=== PATIENT | female | born 1990 | race Caucasian/White ===

== ENCOUNTER 2024-12-23 13:02 | Emergency (ER) | payer MEDICAID, SELFPAY ==
--- OUTSIDE RECORDS SUMMARY | 2024-12-23 13:07 | XMS_ITS | Clinical Summary ---
Author Organization [facility] Address [address] [place] [id number] Care Team Providers Care Button Machine Operator Name Role Phone Cortney Guillaume MD Primary Care Provider [phone] Allergies No known active allergies Medications acetaminophen (TYLENOL) 325 mg tabletIndicati ons:S/P section Take 2 Tablets (650 mg) by mouth every 4 hours if needed (mild pain). Max acetaminophen dose: 4000mg in 24 hrs. 100 Tablet 03/13/2024 4:53 PM PATTERN FILER Active Additional Information Patient not taking.Reported on 12/17/2024 ibuprofen (Motrin IB) 200 mg tabletIndicati ons:S/P section Take 3 Tablets (600 mg) by mouth every 6 hours if needed for Pain (for uterine cramping). Take with food. 100 Tablet 03/13/2024 4:53 PM PATTERN FILER Active Additional Information Patient not taking.Reported on 12/17/2024 Hospital, Clinic, or Other Facility Administered Medication Ordered Dose Route Frequency Start Date End Date Status medroxyPROGESTERone acetate (contraceptive) (DEPO-PROVERA) injection 150 mgIndications:Menorr hagia with irregular cycle 150 mg IM Q 3 MONTHS (12 WEEKS) 12/18/2024 11/19/2025 Active Active Problems Problem Noted Date Diagnosed Date At risk for ineffective 03/13/2024 Acute on chronic anemia 03/13/2024 premature rupture of membranes with onset of labor more than 24 hours following rupture in third trimester 03/10/2024 Grand multipara 03/10/2024 Anemia during in third trimester 03/10 S/P section 03/10/2024 Non-reassuring status, delivered, current hospitalization 03/10/2024 ROM (rupture of membranes), premature 03/09/2024 32 weeks gestation of 03/09/2024 care of multigravida, antepartum 2023 Vaginal delivery 08/12/2020 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) at risk for high grade squamous intraepithelial lesion (HGSIL) on cytologic smear of cervix 08/30/2011 Overview (06/28/2023): 08/30/2011 LSIL; cannot exclude a higher-grade lesion (age 21) 12/12/2011 Gary - No Biopsy taken () (age 21) 05/28/2015 NIL 11/02/2016 NIL 01/26/2020 NIL 06/18/2023 NIL/HPV Negative Plan: HPV based testing due 05/2028 GERD (gastroesophageal reflux disease) Resolved Problems Problem Noted Date Diagnosed Date Resolved Date Supervision of other normal 01/22/2020 08/12/2020 Vaginal delivery 09/25/2018 08/12/2020 Suspected anomaly not found 06/28/2018 08/12/2020 Supervision of normal intrau terine in multigravida 03/27/2018 08/12/2020 Contraceptive surveillance 09/02/2015 0 08/12/2020 Ganglion cyst of finger of right hand 05/09/2015 08/12/2020 Overweight 04/14/2015 08/12/2020 Active labor at term 08/20/2014 016 Anemia during 04/19/201203/27 care, subsequent 12/01/2011 04/14/2015 Overview (06/17/2012): GBS neg LGSIL on first OB pap: colpo without significant lesions: plan to recheck pap at 6 week PP visit, repeat colpo if needed. LSIL (low grade squamous int raepithelial lesion) on Pap smear 08/30/2011 11/14/2016 Overview (04/11/2013): Cannot exclude high grade lesion; overdue for repeat Pap- 04/11/13 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) on cervical Pap smear 08/30/2011 02/13/2020 Overview (11/16/2016): 08/30/2011; Cannot exclude high grade lesion Pap Plan: Routine Screening Encounters Date Type Department Care Team Description 12/17/2024 8:45 AM CDT Office Visit [facility] [address] [place] [address] Cortney Guillaume MD Follow Up (Pain in area. Started period with clots) 12/17/2024 Telephone [facility] [address] [place] [address] Cortney Guillaume MD Letter For Work 12/17/2024 Travel from Last 3 Months Immunizations Immunization Administration Dates Next Due COVID-19 VACCINE SPIKEVAX (M ODERNA 50MCG/0.5ML) 12YO+ PFS 02/26/2023 COVID-19 vaccine (Pfizer-Bio NTech 30mcg/0.3mL) PF, MDV 10/13/2020,09/22/2020 Hepatitis A (Adult) 10/24/2023 Hepatitis B, Unspecified 05/10/2007,07/31/2006,0 06/26/2006 INFLUENZA, IIV3 PF (AGE >= 6 MO) 12/28/2023 Inactivated Polio Vaccine 05/10/2007,07/31/2006, 06/26/2006 Influenza Virus, Unspecified 02/02/2012 Influenza, IIV3 (Age 6-35 mos) 12/02/2010 Influenza, IIV3 (Age >=3 years) 02/02/20 12,12/02/2010,01/26/2010,2006,02/09/2006,01/15/2006 Influenza, IIV4 02/26/2023,01/26/2020 MMR 07/31/2006,06/26/2006 Td, Preservative Free (age > = 7 Years) 05/10/2007,07/31/2006,06/26/2006 Tdap 01/28/2024,,08/28/2018,2014,05/01/2012,01/26/2010 Tdap, Unspecified 08/07/2014 Typhoid (injectable) 10/24/2023 Varicella Vaccine 07/31/2006,06/26/2006 Family History Medical History Relation Name Comments Good Health Father Good Health Mother Relation Name Status Comments Brother Alive x4 Father Alive Maternal Grandfather Alive Maternal Grandmother Mother Alive Paternal Grandfather Paternal Grandmother Sister Alive Son Alive Social History Tobacco Use Types Packs/Day Years Used Date Smoking Tobacco: Never Smokeless Tobacco: Never Tobacco Cessation:Counseling Given: Yes Alcohol Use Standard Drinks/Week Comments No 0 (1 standard drink = 0.6 oz pur e alcohol) Humiliation, Afraid, Rape, and Kick questionnair e Answer Date Recorded Within the last year, have y ou been afraid of your partner or ex-partner? No 01/22/2020 Within the last year, have y ou been humiliated or emotionally abused in other ways by your partner or ex-partner? No Within the last year, have y ou been kicked, hit, slapped, or otherwise physically hurt by your partner or ex-partner? No 01/22/2020 Within the last year, have y ou been raped or forced to have any kind of sexual activity by your partner or ex-partner? No 01/22/2020 PHQ-2 Answer Date Recorded PHQ-2 TOTAL SCORE 0 02/27/2024 Social Connections Answer Date Recorded Do you often feel lonely or isolated from those around you? 0 03/09/2024 Financial Resource Strain Answer Date R ecorded Difficulty of Paying Living Expenses 3 12/28/2023 Difficulty of Paying Living Expenses Not on file 12/28/2023 Food Insecurity Answer Date Recorded Do you worry your food will run out before you are able to buy more? 1 03/09/2024 Transportation Needs Answer Date Record ed Does lack of transportation keep you from medica l appointments? 1 03/09/2024 Does lack of transportation keep you from work, meetings or getting things that you need? 1 03/09/2024 Housing Stability Answer Date Recorded What is your housing situation today? 1 03/09/2024 Interpersonal Safety Answer Date Record ed Are you being hit, kicked, p ushed or yelled at (see row info)? No 03/09/2024 Interpersonal Safety Abuse 12 - 18 Not on file 03/09/2024 Interpersonal Safety Ambulatory Vulnerability No t on file 03/09/2024 Utilities Answer Date Recorded Do you have trouble paying f or utilities (for example, heat, electricity, water, phone)? 1 03/09/2024 Comments No Sex and Gender Information Value Date Recorded Sex Assigned at Not on file Legal Sex Female 7:21 AM PATTERN FILER Gender Identity Not on file Sexual Orientation Not on file Occupation Industry Job Start Date Job End Date home Not on file Not on file Not on file [employer] Not on file Not on file Not on file Obstetrics History Para Term AB IAB SAB Ectopic Multiple Livin g Live Births 6 6 5 1 0 0 0 0 0 6 6 Date Outcome GA Total Labor Labor/2nd/3rd Weight Sex Type Anes PTL Angella A1 A5 Name Clin 2005 Term 40w 0d 0h 30m/ 2.27 kg (5 lb) M Vag None N Livin g Arturo Delivery Location:[facility] Comments:precipitous d elivery 3 Term 39w 0d 2.81 kg (6 lb 3 oz) F Vag None N Livin vito german Delivery Location:[facility] 2014 Term 37w 6d 0h 30m/ M Vag None N Livin g Arturo Delivery Location:[facility] Comments:precipitous d elivery 2018 Term 38w 2d 0h 10m/0h 03m 2.75 kg (6 lb 1 oz) M Vag None N Livin g [address] tt Complications:None,Precipito us delivery (HC) Delivery Location:[facility]) 2020 Term 39w 0d 8h 00m 7h 58m/0h 02m/ 3.55 kg (7 lb 13.1 oz) M Vag-S pont None Livin g 9 [address], Cortney Romero MD Complications:Precipitous la bor (< 3 hours) Delivery Location:[facility] ( [facility]) 2023 33w 0d 0h 02m 0h 02m M C-Sec tion Spinal Y Livin g 5 8 Bernardo spaulding, Carmenza antoine MD Complications:Category II: I ndeterminate Delivery Location:Hospital ( [facility] [place] [address]) Last Filed Vital Signs Vital Sign Reading Time Taken Comments Blood Pressure 98/60 12/17/2024 8:46 AM CDT Pulse 62 12/17/2024 8:46 AM CDT Temperature 36.7 C (98 F) 03/13/2024 3:08 PM PATTERN FILER Respiratory Rate 16 12/17/2024 8:46 AM CDT Oxygen Saturation 98% 03/13/2024 3:08 PM PATTERN FILER Inhaled Oxygen Concentration - - Weight 66.8 kg (147 lb 4.8 oz) 12/17/2024 8:46 A M CDT Height 143.5 cm (4' 8.5) 12/17/2024 8:46 AM CDT Body Mass Index 32.44 12/17/2024 8:46 AM CDT Plan of Treatment Upcoming Encounters Date Type Department Care Team (Late st Contact Info) Description 12/25/2024 9:45 AM CDT Orders Only [address] [place] [address] Lab, [facility] 01/29/2025 8:30 AM PATTERN FILER Office Visit [address] [place] [address] Asha Kemp, [address] [place] [address] Health Maintenance Due Date Last Done Comments Pneumococcal series for age 6-49 (1 of 2 - PCV) 2009 HPV series for age 9-45 (1 - 3-dose SCDM series) 2017 COVID-19 vaccine series (2024- season) 2024 02/26/2023, 10/13/2020, 09/22/2020 Influenza Vaccine (#1) 2024 , 02/26/2023, 01/26/2020, Additional history exists Depression screening for age 12+ 02/26/2025 02/27/20 24 BMI (ht and wt on same day) for age 18+ 12/17/2025 12/17/2024, 07/09/2024, 04/25/2024, Additional history exists Pap test for age 21-65 06/17/2028 , 06/18/2023, 01/26/2020, Additional history exists Tetanus booster 01/27/2034 01/28/2024, 06/24, 08/28/2018, Additional history exists RSV vaccine for adults or (1 - 1-dose 75+ series) 2065 Hepatitis B series for 19+ Completed 05/10, 07/31/2006, 06/26/2006 HIV for age 15-65 Completed 12/28/2023, , 04/05/2018, Additional history exists Hepatitis C screening for ag e 18-79 Completed 12/28/2023, 01/22/2020 Procedures Procedure Name Priority Date/Time Associated Diagnosis Comments HCG BETA QUANT, Routine 12/17/2024 9:48 AM CDT Menorrhagia with irregular cycle HEMOGLOBIN Routine 12/17/2024 9:48 AM CDT Menorrhagia with irregular cycle HIV 1/2 ANTIGEN/ANTIBODY FOURTH GENERATION W/RFL ([facility]) Routine 12/28/2023 11:55 AM CDT care, subsequent in second trimester (HC) ANTI HCV Routine 12/28/2023 11:55 AM CDT care, subsequent in second trimester (HC) HPV HIGH RISK Routine 06/18/2023 10:30 AM CDT Pap smear for cervical cancer screening from Last 3 Months or Most Recently Relevant to Health Maintenance Results * HEMOGLOBIN (12/17/2024 9:48 AM CDT) HEMOGLOBIN 11.7 11.7 - 15.5 g/dL 12/18/2024 3:26 AM CDT [facility] MCV 88.5 80.0 - 100.0 fL 12/18/2024 3:26 AM CDT [facility] Blood BLOOD SPECIMEN / Unknown [facility] / Unknown 12/17/2024 9:48 AM CDT 12/17/2024 9:49 AM CDT Cortney Guillaume MD HEMATOLOGY Final Result [facility] [address] [address], * HCG BETA QUANT, (12/17/2024 9:48 AM CDT) Pathologist [facility] HCG BETA QUANT,PREGNANC Y 894 mIU/mL 12/17/2024 11:07 AM CDT [facility] Blood BLOOD SPECIMEN / Unknown [facility] / Unknown 12/17/2024 9:48 AM CDT 12/17/2024 9:49 AM CDT Narrative [facility] - 12/17/2024 11:07 AM CDT Expected Value for Healthy Non- premenopausal women <5.3mIU/mL FOR GESTATIONAL ASSESSMENT-See Range Table Below Weeks of gestation hCG mIU/mL 3 weeks gestation (5.8 - 71.2) 4 weeks gestation (9.5 - 750) 5 weeks gestation (217 - 7138) 6 weeks gestation (158 - 31,795) 7 weeks gestation (3,697 - 163,563) 8 weeks gestation (32,065 - 149,571) 9 weeks gestation (63,803 - 151,410) 10 weeks gestation (46,509 - 186,977) 12 weeks gestation (27,832 - 210,612) 14 weeks gestation (13,950 - 62,530) 15 weeks gestation (12,039 - 70,971) 16 weeks gestation (9,040 - 56,451) 17 weeks gestation (8,175 - 55,868) 18 weeks gestation (8,099 - 58,176) Biotin supplements may cause clinically significant interference for this test assay. If interference is suspected, it is strongly recommended that biotin is discontinued for at least one week prior to retesting. Cortney Guillaume MD CHEMISTRY Final Result [facility] [address] [place] [address] * HIV 1/2 ANTIGEN/ANTIBODY FOURTH GENERATION W/RFL ([facility]) (12/28/2023 11:55 AM CDT) HIV AG/AB, 4TH GEN NON-REACT CELENA NON-REACT CELENA [facility] [place] Comment: HIV-1 antigen and HIV-1/HIV-2 antibodies were not detected. There is no laboratory evidence of HIV infection. PLEASE NOTE: This information has been disclosed to you from records whose confidentiality may be protected by state law. If your state requires such protection, then the state law prohibits you from making any further disclosure of the information without the specific written consent of the person to whom it pertains, or as otherwise permitted by law. A general authorization for the release of medical or other information is NOT sufficient for this purpose. For additional information please refer to http://education.Onlineprinters/faq/GZQ998 (This link is being provided for informational/ educational purposes only.) The performance of this assay has not been clinically validated in patients less than 2 years old. Blood BLOOD SPECIMEN / Unknown 12/28/2023 11:55 AM CDT 12/28/2023 11:55 AM CDT Cortney Guillaume MD SEND OUTS Final Result [facility] [address] [place] [address], [facility] [address] [place] [address] * ANTI HCV (12/28/2023 11:55 AM CDT) HEPATITIS C ANTIBODY NON-REACTI VE NON-REACT CELENA [facility] Comment: HCV antibody was non-reactive. There is no laboratory evidence of HCV infection. In most cases, no further action is required. However, if recent HCV exposure is suspected, a test for HCV RNA (test code 16194) is suggested. For additional information please refer to http://education.Onlineprinters/faq/ALG43f2 (This link is being provided for informational/ educational purposes only.) Blood BLOOD SPECIMEN / Unknown 12/28/2023 11:55 AM CDT 12/28/2023 11:55 AM CDT Cortney Guillaume MD SEND OUTS Final Result Performing Organization Address [facility]/ZIP Co de Phone Number Urve[facility] [address] [place] [address], [facility] [address] [place] [address] * HPV HIGH RISK (06/18/2023 10:30 AM CDT) TYPE 16 Negative Negative 06/20/2023 4:33 PM CDT [facility] TYPE 18 Negative Negative 06/20/2023 4:33 PM CDT [facility] OTHER HIGH RISK TYPES Negative Negative 06/20/2023 4:33 PM CDT [facility] Other (Cervical) Non-Blood / Unknown 06/18/2023 10:30 AM CDT 06/19/2023 9:41 AM CDT Narrative [facility] - 06/20/2023 4:33 PM CDT HPV types 16, 18, 31, 33, 35, 39, 45, 51, 52, 56, 58, 59, 66 and 68 DNA were undetectable or below the pre-set threshold. Methodology: Nino Dayna 4800 HPV Test us Cortney Guillaume MD MICROBIOLOGY Final Result [facility] [address] [place] [address], [place] from Last 3 Months or Most Recently Relevant to Health Maintenance Insurance [facility] Advance Directives * Full Code (Latest Code Status on File) Date Activated Date Inactivated Comments 03/11/2024 5:03 AM 03/13/2024 7:56 PM Physician Determined Question Answer Comments Code Status Discussion: Other * Full Code Date Activated Date Inactivated Comments 03/10/2024 12:19 AM 03/10/2024 4:02 PM Question Answer Comments Code Status Discussion: Reviewed Preferences * Full Code Date Activated Date Inactivated Comments 08/12/2020 10:44 AM 08/13/2020 6:07 PM Question Answer Comments Code Status Discussion: Not Discussed * Full Code Date Activated Date Inactivated Comments 09/25/2018 7:21 AM 09/26/2018 4:19 PM * Full Code Date Activated Date Inactivated Comments 05/10/2015 12:25 PM 05/10/2015 4:00 PM Care Teams Button Machine Operator Relationship Specialty Start Date End Date Cortney Guillaume MD [address] [facility] [place] [address] PCP - General Family Practice 02/02/12
[2024-12-23 13:14] VITALS: BP 102/65; PULSE 82; RESP 18; TEMP 37.1; O2SAT 98; BMI 30.5
--- NOTE | 2024-12-23 13:30 | CRLHL7_ITS ---
For Patients: As a result of the Century Cures Act, medical imaging exams and procedure reports are released immediately into your electronic medical record. You may view this report before your referring provider. If you have questions, please contact your health care provider. INDICATION: Continued heavy bleeding with clots after presumed miscarriage on 12/18/2024. TECHNIQUE: Ultrasound OB pelvis transabdominal and transvaginal. Real-time hodge-scale imaging of the pelvis was performed. COMPARISON: None. FINDINGS: Irregular fluid collection within the fundal portion of the endometrium, with adjacent prominent foci of hypervascularity. The endometrial stripe is distended to 2 cm. The uterus is otherwise unremarkable. Unremarkable ovaries. The right ovary measures 3.2 x 1.6 x 2.2 cm and the left ovary measures 2.5 x 1.7 x 2.1 cm. IMPRESSION: Irregular fluid collection within fundal portion of the endometrium with prominent adjacent foci of hypervascularity, suspicious for retained products of conception. Dictated by Marv Long MD @ 12/23/2024 2:40:46 PM (Electronically Signed)
--- NOTE | 2024-12-23 14:46 | ED.FEMALEGU ---
HPI - Female Genitourinary General Chief complaint: Vaginal Bleeding Stated complaint: Abdominal pain Time Seen by Provider: 12/23/24 14:00 Related Data Previous Rx's ?Medication ?Instructions ?Recorded hydrocodone 5 mg-acetaminophen 325 1 tab PO Q4-6H PRN pain #10 tabs 12/23/24 mg tablet Allergies Allergy/AdvReac Type Severity Reaction Status Date / Time No Known Drug Allergies Allergy Verified 12/23/24 13:13 Exam Const: Vital Signs, click to edit/add: Vital Signs - 24 hr 12/23/24 13:14 Temperature 98.8 F Pulse Rate [Pulse Oximeter] 82 Respiratory Rate 18 Blood Pressure [Ri ght Upper Arm] 102/65 Pulse Oximetry 98 Oxygen Delivery Me thod Room Air Course Vital Signs Vital signs: Initial Vital Signs Temperature 98.8 F 12/23/24 13:14 Temperature Source Temporal Artery Scan 12/23/24 13:14 Pulse Rate 82 12/23/24 13:14 Respiratory Rate 18 12/23/24 13:14 Blood Pressure 102/65 12/23/24 13:14 Blood Pressure Mean 77 12/23/24 13:14 Pulse Oximetry 98 12/23/24 13:14 Oxygen Delivery Method Room Air 12/23/24 13:14 Vital Signs Temperature 98.8 F 12/23/24 13:14 Pulse Rate 82 12/23/24 13:14 Respiratory Rate 18 12/23/24 13:14 Blood Pressure 102/65 12/23/24 13:14 Pulse Oximetry 98 12/23/24 13:14 Oxygen Delivery Method Room Air 12/23/24 13:14 Temperature 98.8 F 12/23/24 13:14 Pulse Rate 82 12/23/24 13:14 Respiratory Rate 18 12/23/24 13:14 Blood Pressure 102/65 12/23/24 13:14 Pulse Oximetry 98 12/23/24 13:14 Oxygen Delivery Method Room Air 12/23/24 13:14 MDM - Female Genitourinary MDM Narrative Medical decision making narrative: This patient comes in reporting significant vaginal bleeding with some cramping. She has a [id number] son and states that she has not had any menses since delivering her child. She did go to a clinic appointment and was told that she had a miscarriage. We did research in find a beta hCG level of 894. Repeat testing today shows beta hCG at 263. Also obtained hemoglobin normal range at 12.3. A ultrasound is obtained and does show some suspicion for retained products of conception. Type and screen of the patient's blood is obtained and returns Rh positive. I did speak with the OBGYN physician on-call who stated that it would be okay to discharge home and follow-up with appointment in 2 days as scheduled. The patient is instructed to return if worsening symptoms occur. I did provide a prescription for some tablets of Casper for pain relief along with a return to work note. Lab Data Labs: Lab Results 12/23/24 Range/Units 15:09 WBC 9.50 (4.50-11.00) K/uL RBC 4.37 (4.00-5.20) m/uL Hgb 12.3 (12.0-16.0) gm/dL Hct 36.4 (33.0-51.0) % MCV 83 (80-100) fL MCH 28 (26-34) pg MCHC 34 (32-36) gm/dL RDW Coeff of Leia 13.1 (11.5-15.5) % Plt Count 249 (140-440) K/uL Neut % (Auto) 76.0 H (42.0-72.0) % Lymph % (Auto) 17.7 L (20-44) % Hodgeman % (Auto) 5.1 (0.0-11.0) % Eos % (Auto) 0.8 (0.0-7.0) % Baso % (Auto) 0.3 (0.0-3.0) % Neut # (Auto) 7.20 H (1.7-7.0) K/uL Lymph # (Auto) 1.70 (0.90-2.90) K/uL Hodgeman # (Auto) 0.50 (0.00-0.90) K/UL Eos # (Auto) 0.08 (0.00-0.50) K/uL Baso # (Auto) 0.03 (0.00-0.30) K/uL Abs Immat Gran (auto) 0.01 (0.00-0.30) K/uL Imm/Tot Granulo (auto) 0.1 % HCG, Quant 256.35 mIU/mL Imaging Data US - abdomen: Radiologist's impression: Irregular fluid collection within fundal portion of the endometrium with prominent adjacent foci of hypervascularity, suspicious for retained products of conception. Discharge Plan Discharge Clinical Impression: Incomplete Patient Disposition: Home, Self-Care Condition: Stable Additional Instructions: Take medication as needed and directed for pain. Follow-up with clinic appointment in 2 days as scheduled. Return if worsening symptoms occur. Prescriptions: New hydrocodone-acetaminophen 5-325 mg tablet 1 tab PO Q4-6H PRN (Reason: pain) Qty: 10 0RF Follow Up/Referrals: Bethanie Villarreal, ATC [Primary Care Provider] Stand Alone Forms: MyHealth Info Instructions
[2024-12-23 15:15] LABS: Hematocrit* 36.4 % (33.0-51.0); Hemoglobin* 12.3 gm/dL (12.0-16.0); Immature Granulocytes Abs Auto 0.01 K/uL (0.00-0.30); Immature Granulocytes Pct Auto 0.1 %; Mean Corpuscular HGB Conc 34 gm/dL (32-36); Mean Corpuscular Hemoglobin 28 pg (26-34); Mean Corpuscular Volume 83 fL (80-100); RDW Coefficient of Variation % 13.1 % (11.5-15.5); Red Blood Count* 4.37 m/uL (4.00-5.20); White Blood Count* 9.50 K/uL (4.50-11.00)
[2024-12-23 15:16] LABS: Lymphocytes Absolute Auto 1.70 K/uL (0.90-2.90); Slide Review Reflex No
[2024-12-23 15:48] LABS: HCG Quantitative* 256.35 mIU/mL
[2024-12-23 17:13] VITALS: BP 127/74; PULSE 74
== END 2024-12-23 17:17 | disposition home or self-care (01) ==
LOC: ED 17:08
PROVIDERS: Emergency Provider Emergency Medicine Emergency Medical Services; PCP Family Medicine
DX: O03.4 Incomplete spontaneous abortion without complication (principal)
CPT/HCPCS: 36415; 76801; 76817; 84702; 85025; 86850; 86900; 86901; 99284

== ENCOUNTER 2024-12-30 06:55 | Outpatient (CLI) | payer MEDICAID, SELFPAY | END 2024-12-30 06:56 | disposition home or self-care (01) | LOC: NFLDREF 06:56 | PROVIDERS: PCP Family Medicine; Visit Provider Physician Assistant | DX: O03.4 Incomplete spontaneous abortion without complication (principal) | CPT/HCPCS: 84702 ==